=== PATIENT | female | born 1980 | race Caucasian/White ===

== ENCOUNTER 2021-01-26 15:26 | Outpatient (CLI) | payer BC | END 2021-01-26 15:27 | disposition home or self-care (01) | LOC: DTY/OP 15:26 | PROVIDERS: ATTEND Surgery | DX: E66.01 Morbid (severe) obesity due to excess calories (principal) | CPT/HCPCS: 97802 ==

== ENCOUNTER 2021-06-19 09:45 | Inpatient (IN) | payer BC ==
[2021-06-14 13:16] VITALS: BMI 44.9
[2021-06-20] MEDS ORDERED: Ketamine 50 MG/ML (10ML VIAL) ONE (09:03)
[2021-06-20] MEDS ORDERED: Fentanyl 100 MCG/2 ML VIAL ONE ×2 (09:03→11:31)
[2021-06-20] MEDS ORDERED: SUGAMMADEX SODIUM 200 MG/2 ML VIAL ONE (09:03)
[2021-06-20] MEDS ORDERED: Bupivacaine 0.25% HCL 30 ML VIAL ONE (09:11)
[2021-06-20] MEDS ORDERED: Lidocaine 1% w/Epinephrine 1:100K 20 ML VIAL ONE (09:11)
[2021-06-20] MEDS ORDERED: Dexamethasone 20 MG/5 ML VIAL ONE (09:28)
[2021-06-20] MEDS ORDERED: PROPOFOL 200 MG/20 ML VIAL ONE (09:28)
[2021-06-20] MEDS ORDERED: Rocuronium Bromide 10 MG/ML (10ML VIAL) ONE (09:28)
[2021-06-20] MEDS ORDERED: PHENYLEPHRINE-NS 100 MCG/ML 10 ML SYRINGE ONE (09:28)
[2021-06-20] MEDS ORDERED: Ketorolac Tromethamine 30 MG/ML VIAL ONE (09:28)
[2021-06-20] MEDS ORDERED: Lidocaine 1% PF 5 ML VIAL ONE (09:28)
[2021-06-20] MEDS ORDERED: Ondansetron PF 4 MG/2 ML Vial ONE (09:28)
[2021-06-20] MEDS ORDERED: Glycopyrrolate 0.2 MG/ML 5 ML SYRINGE ONE (09:28)
[2021-06-20] MEDS ORDERED: AFRIN NASAL MIST 15 ML BOT ONE (09:48)
[2021-06-20] MEDS ORDERED: Meperidine HCl/PF 25 MG/ML VIAL SLOW IVP PRN (10:09)
[2021-06-20] MEDS ORDERED: Promethazine HCl 25 MG/ML VIAL IVPB PRN (10:09)
[2021-06-20] MEDS ORDERED: Promethazine HCl 25 MG/ML VIAL IM PRN ×3 (10:09→11:22)
[2021-06-20] MEDS ORDERED: Ondansetron HCl/PF 4 MG/2 ML Vial IVP PRN (10:09)
[2021-06-20] MEDS ORDERED: hydrALAZINE 20 MG/ML VIAL SLOW IVP PRN (10:45)
[2021-06-20] MEDS ORDERED: Ondansetron PF 4 MG/2 ML Vial IVP PRN ×2 (10:45→11:22)
[2021-06-20] MEDS ORDERED: Dextrose 5% in Water 1,000 ML IV PRN (10:45)
[2021-06-20] MEDS ORDERED: diphenhydrAMINE 50 MG/ML VIAL IVP PRN ×2 (10:45→11:22)
[2021-06-20] MEDS ORDERED: Hydrocodone-Acetamin 15 ML UDCUP PO PRN (10:45)
[2021-06-20] MEDS ORDERED: Dextrose 50% Abboject 50 ML SYRINGE SLOW IVP PRN (10:45)
[2021-06-20] MEDS ORDERED: diphenhydrAMINE 25 MG CAP PO PRN (11:22)
[2021-06-20] MEDS ORDERED: diphenhydrAMINE 50 MG/ML VIAL IM PRN (11:22)
[2021-06-20] MEDS ORDERED: Zolpidem Tartrate 5 MG TAB PO PRN (11:22)
[2021-06-20] MEDS ORDERED: fentaNYL Citrate/PF 2,000 MCG in Sodium Chloride 0.9% 60 ML IV PRN (11:22)
[2021-06-20] MEDS ORDERED: Naloxone HCl 0.4 mg/ml Vial IV PRN (11:22)
[2021-06-20] MEDS ORDERED: PCA Communication Order-Pharmacy FS SCH (11:30)
[2021-06-20] MEDS: D5 1/2 NS w/20 mEq KCL 1,000 ML IV SCH ×2 (16:05→19:06)
[2021-06-21] MEDS ORDERED: Levothyroxine Sodium 50 MCG TAB PO SCH (06:00)
[2021-06-21 06:01] LABS: #Lymphocytes 2.5 thou/uL (1.20-3.40); #Monocytes 0.6 thou/uL (0.11-0.59); #Neutrophils 8.8 thou/uL (1.40-6.50); %Basophils 0.3 % (0.0-1.0); %Eosinophils 0.1 % (0.0-10.0); %Lymphocytes 21.1 % (21.0-51.0); %Monocytes 5.1 % (0.0-10.0); %Neutrophils 73.4 % (42.0-75.0); Hemoglobin 13.4 g/dL (12.0-16.0); Mean Corpuscular HGB CONC 34.1 g/dL (32.0-36.0); Mean Corpuscular Volume 87.9 fL (78.0-98.0); Mean Platelet Volume 8.3 fL (7.4-10.4); Platelet Count 217 thou/uL (130-400); RBC Distribution Width 13.7 % (11.5-14.5); Red Blood Cell (RBC) Count 4.45 mill/uL (4.20-5.40)
[2021-06-21 06:25] LABS: Anion Gap 12 mmol/L (10-20); BUN (Urea Nitrogen) 7 mg/dL (7.0-18.7); Calc. Creatinine Clearance 198 mL/min (70-130); Calcium 8.3 mg/dL (7.8-10.44); Carbon Dioxide 23 mmol/L (22-29); Chloride 106 mmol/L (98-107); Glucose 142 mg/dL (70-105); Potassium 4.1 mmol/L (3.5-5.1); Sodium 137 mmol/L (136-145)
[2021-06-21] MEDS ORDERED: Enoxaparin Sodium 40 MG/0.4 ML SYRINGE SC SCH (09:00)
[2021-06-21] MEDS ORDERED: Pantoprazole 40 MG VIAL IVP SCH (09:00)
[2021-06-21] MEDS: D5 1/2 NS w/20 mEq KCL 1,000 ML IV SCH ×2 (09:18→09:19)
[2021-06-21 12:35] VITALS: BP 108/74; TEMP 97.8
== END 2021-06-21 12:40 | disposition home or self-care (01) | DRG 621 ==
LOC: SURG A 06-20 06:42 → EDSTATUS 06-20 09:45 → SURG B 06-20 14:57
PROVIDERS: ADMIT Surgery; ATTEND Surgery
PROC: 0DB64Z3 Excision of Stomach, Percutaneous Endoscopic Approach, Vertical (ICD-10-PCS; principal; 2021-06-20)
PROC: 8E0W4CZ Robotic Assisted Procedure of Trunk Region, Percutaneous Endoscopic Approach (ICD-10-PCS; 2021-06-20)
DX: E66.01 Morbid (severe) obesity due to excess calories (principal); Z68.42 Body mass index [BMI] 45.0-49.9, adult; E11.9 Type 2 diabetes mellitus without complications; F17.210 Nicotine dependence, cigarettes, uncomplicated; E03.9 Hypothyroidism, unspecified; Z79.899 Other long term (current) drug therapy; Z79.84 Long term (current) use of oral hypoglycemic drugs; Z79.890 Hormone replacement therapy; Z20.822 Contact with and (suspected) exposure to COVID-19
CPT/HCPCS: 36415; 71046; 80048; 80053; 83036; 84703; 85025; 88307; 93005; 93010; C9113; J0690; J1100; J1650; J1885; J2405; J2704; J3010; S0020; U0003; U0005

== ENCOUNTER 2021-06-19 09:50 | Outpatient (CLI) | payer BC ==
[2021-06-19 11:11] LABS: #Eosinphils 0.2 10x3/uL (0.0-0.5); #Monocytes 0.5 10x3/uL (0.0-1.1); #Neutrophils 5.8 10x3/uL (1.5-8.4); %Basophils 0.4 % (0.0-2.0); %Eosinophils 2.5 % (0.0-6.0); %Monocytes 5.2 % (0.0-10.0); %Neutrophils 59.4 % (40.0-75.0); Hemoglobin 14.3 g/dL (12.0-15.5); Mean Corpuscular HGB CONC 32.7 g/dL (32.0-36.0); Mean Corpuscular Hemoglobin 28.4 pg (27.0-33.0); Mean Corpuscular Volume 86.7 fl (81.6-98.3); Mean Platelet Volume 10.9 fl (7.4-10.4); Platelet Count 279 10x3/uL (150-450); RBC Distribution Width 14.7 % (11.5-14.5); Red Blood Cell (RBC) Count 5.04 10x6/uL (3.90-5.03); White Blood Cell (WBC) Count 9.7 10x3/uL (3.5-10.5)
[2021-06-19 11:34] LABS: BHCG - Serum Negative (NEGATIVE); Pregs Control Background? CLEAR/WHITE (CLR/WHITE); Pregs Control Bar Appear? YES (CONTROL BAR)
[2021-06-19 11:38] LABS: ALT (SGPT) 32 U/L (8-55); AST (SGOT) 22 U/L (5-34); Albumin 4.4 g/dL (3.5-5.0); Alkaline Phosphatase 55 U/L (40-110); Anion Gap 15 mmol/L (10-20); BUN (Urea Nitrogen) 18 mg/dL (7.0-18.7); Bilirubin, Total 0.3 mg/dL (0.2-1.2); Calc. Creatinine Clearance 0 mL/min (70-130); Calcium 9.1 mg/dL (7.8-10.44); Carbon Dioxide 23 mmol/L (22-29); Chloride 106 mmol/L (98-107); Globulin 2.8 g/dL (2.4-3.5); Glucose 86 mg/dL (70-105); Potassium 4.4 mmol/L (3.5-5.1); Protein, Total 7.2 g/dL (6.0-8.3); Sodium 140 mmol/L (136-145)
[2021-06-19 14:31] LABS: Hemoglobin A1c 6.3 % (4.0-6.0)
[2021-06-19 22:00] LABS: SARS-CoV-2 PCR by NAA Not Detected (NotDetected)
== END 2021-06-19 09:51 | disposition home or self-care (01) ==
LOC: LABBT 09:50
PROVIDERS: ATTEND Surgery
DX: Z01.818 Encounter for other preprocedural examination (principal); E66.01 Morbid (severe) obesity due to excess calories; Z20.822 Contact with and (suspected) exposure to COVID-19
CPT/HCPCS: 71046; 80053; 83036; 84703; 85025; 93005; 93010; U0003; U0005